=== PATIENT | male | born 1955 | race Caucasian/White ===

== ENCOUNTER 2016-11-05 16:34 | Emergency (ER) | payer OTHER ==
[2016-11-05 17:35] VITALS: BP 112/78
[2016-11-05] MEDS ORDERED: Cephalexin 500 MG Cap PO ONE (18:23)
[2016-11-05] MEDS ORDERED: Acetaminophen/HYDROcodone 325-5 MG Tab PO ONE (18:25)
--- NOTE | 2016-11-06 14:05 | CR ---
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 Very minimal osteoarthritis may be present also at the DIP joint of the third finger, with moderate osteoarthritis, most likely posttraumatic at the 5th metacarpal carpal joint. Mild degenerative changes are also suggested at the 1st metacarpophalangeal joint. Very minimal degenerative changes are seen at the 2nd and 3rd metacarpophalangeal joints. A fracture, dislocation, or other acute bone or joint abnormality was not identified. IMPRESSION: 1. No acute fracture or dislocation. 2. Osteoarthritis. MTDD
--- NOTE | 2016-11-09 09:32 | ER ---
DATE SEEN: 11/05/2016 TIME SEEN: The patient was seen at 1645 hours. 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 The overhead 400-pound bag pressing device came down his hand, as it came down he quickly brought his hand out and it caused a laceration at the dorsum of the right dominant hand involving an 8-cm laceration over the distal metacarpal, and descends to the third and fourth dorsal dermal crease. The wound is a good centimeter. No dysesthesia. No clubbing of fingers. He has good capillary refill. No compromise in sensation. He can make a fist easily. He has two superficial denuded avulsions of epidermis over the second MP joints, 1) approximately 4 cm long and, 2) ellipse of tissue was approximately 3 cm long and 1 cm wide. No dysesthesia. No compromise in sensation. Capillary refill is intact. No clubbing of his fingers. PAST MEDICAL HISTORY: Negative. No diabetes, heart disease, high blood pressure, and asthma. SOCIAL HISTORY: He is not a smoker. He does drink alcohol rarely. Does not use street drugs. REVIEW OF SYSTEMS: Otherwise negative. PHYSICAL EXAMINATION: VITAL SIGNS: Blood pressure 112/78, heart rate 99, respirations 20, oxygen saturation 99%, temperature 36.6 degrees. The patient has moderate pain. He is very muscular and trim fellow who is not overweight (weight is 74.8 kilos.) HEENT: PERRLA intact. Pharynx without abnormality. LUNGS: Clear to auscultation. HEART: S1 and S2. No murmur. ABDOMEN: Soft. No guarding. No abdominal discomfort. EXTREMITIES: Right hand, superficial denuded dermis over the second mid metacarpal extending to the mid proximal phalanges dorsum and also denuded dermis over the long finger from the MP joint to the DIP joint (approximately 1.5 cm wide x 6 mm). No compromise of sensation. The most significant third laceration is 8 cm long on the dorsum of the right hand. It goes down to tendinous sheath, does not involve the tendon and there is no bony disruption. DIAGNOSTIC STUDIES: X-ray does not reveal fracture. The patient can make a fist of his hand, no loss of function. Wound was cleansed and flushed, first cleaned in the sink with running water, then injected and then cleansed again and flushed again vigorously and then closed with 10 stitches of interrupted 4-0 Ethilon. The patient tolerated the procedure well. DIAGNOSIS: An 8 cm laceration, dorsal hand secondary to near crush injury to his right hand. DIAGNOSTIC DATA: 1. X-ray is negative. No sign of fracture. 2. Avulsion, dermis of the distal long finger and the MP joint second finger. 3. No clear evidence for crush injury. PLAN: Patient was reassured. Follow up with doctor in a week - earlier if any sign of redness or infection. Elevate his hand if any discomfort. Use Tylenol 1000 and ibuprofen 600 mg, otherwise for breakthrough pain, he has [place] as needed for pain. Wash his hand on a daily basis. Keep it clean. If any sign of redness, erythema, swelling, or increased pain, see the doctor earlier. /[id number] DEMETRIUS/GILBERTO GONZALES
== END 2016-11-05 18:30 | disposition home or self-care (01) ==
LOC: FB.ED 16:34
DX: S61.411A Laceration without foreign body of right hand, initial encounter (principal); W23.1XXA Caught, crushed, jammed, or pinched between stationary objects, initial encounter
CPT/HCPCS: 12004; 73130; 99000; 99283; A9270; 12002

== ENCOUNTER 2022-07-11 07:42 | Day surgery (SDC) | payer BC, MEDICARE ==
[2022-07-11] MEDS ORDERED: Propofol 200 MG/20 ML SDV IV ONE (07:43)
[2022-07-11] MEDS ORDERED: Sodium Chloride 0.9% 10 ML Syringe FLUSH PRN (07:45)
[2022-07-11] MEDS: Lactated Ringers 1,000 ML IV SCH (08:45)
[2022-07-11] MEDS: Simethicone Drops 40 MG/0.6 ML 30 ML Bottle PO ONE (09:36)
[2022-07-11 16:31] VITALS: BP 119/74; PULSE 79
== END 2022-07-11 10:25 | disposition home or self-care (01) ==
LOC: FB.SDS 07:42
PROVIDERS: ATTEND Surgery
DX: Z12.11 Encounter for screening for malignant neoplasm of colon (principal); Z79.899 Other long term (current) drug therapy; Z98.890 Other specified postprocedural states
CPT/HCPCS: 00812; A9270-GY; J2704; J7120